=== PATIENT | female | born 1970 | race Caucasian/White ===

== ENCOUNTER 2017-02-26 18:45 | Emergency (ER) | payer MEDICAID ==
[2017-02-26] MEDS ORDERED: MORPHINE SULFATE 5 MG/ML PFS IVP ONE (18:57)
[2017-02-26] MEDS ORDERED: ONDANSETRON HCL IV 4 MG/2 ML VIAL IVP ONE (18:57)
[2017-02-26] MEDS ORDERED: KETOROLAC 30 MG/ML VIAL IVP ONE (18:58)
[2017-02-26 19:04] LABS: BASO % 0.4 % (0-6); EOS % 2.2 % (0-6); HEMATOCRIT 40.8 % (35.0-47.0); HEMOGLOBIN 13.4 gm/dl (11.6-16.0); LYMPH % 37.8 % (16-45); MEAN CELL VOLUME 89.9 fl (81-97); MEAN CORPUSCULAR HEMOGLOBIN 29.5 pg (27-33); MEAN CORPUSCULAR HGB CONC 32.8 g/dl (32-36); MEAN PLATELET VOLUME 9.8 fl (7.4-10.4); MONO % 7.6 % (0-9); PLATELET COUNT 419 K/uL (130-400); RED BLOOD COUNT 4.54 M/uL (3.80-5.40); RED CELL DISTRIBUTION WIDTH 13.6 % (11.5-14.5)
--- NOTE | 2017-02-26 19:04 | Emergency Department Record ---
History of Present Illness - General Chief complaint: Flank Pain Stated complaint: POSS KIDNEY STONE Time Seen by Provider: 02/26/17 18:47 Source: Patient Mode of Arrival: Ambulatory Limitations: No limitations - History of Present Illness Initial comments: 46 yo female presents to ED with a CC of right sided flank pain that began around 15 hours ago. Patient reports that she noticed "pink urine" this morning , took ibuprofen for developing pain symptoms that improved her symptoms before they became worse. Patient denies fevers, chills, or recent illness. Patient denies health problems at her baseline. MD Complaint: Other Onset/Timin -: Hour(s) Radiation: R flank Severity scale (1-10): 7 Quality: Aching, Other Consistency: Constant Improves with: None Worsens with: None Patient : No Associated Symptoms: Nausea/vomiting - Related Data Previous Rx's Medication Instructions Recorded Hydrocodone/Acetaminophen [[place] 1 each PO Q6H PRN #10 tablet 02/26/17 5-325 Tablet] Allergies Allergy/AdvReac Type Severity Reaction Status Date / Time No Known Drug Allergies Allergy Verified 02/26/17 18:51 Travel Screening - Travel/Exposure Within Last 30 Days Have you traveled within the last 30 days?: No Review of Systems Constitutional: Denies: Chills, Fever, Malaise, Night sweats Eyes: Denies: Eye discharge, Eye pain ENT: Denies: Congestion, Ear pain, Epistaxis Respiratory: Denies: Cough, Dyspnea Cardiovascular: Denies: Chest pain, Dyspnea on exertion Endocrine: Denies: Fatigue, Heat or cold intolerance Gastrointestinal: Reports: Abdominal pain, Nausea, Vomiting Genitourinary: Reports: Hematuria. Denies: Incontinence Musculoskeletal: Reports: Back pain (flank pain). Denies: Arthralgia Skin: Denies: Bruising, Change in color Neurological: Denies: Abnormal gait, Confusion, Headache, Seizure Psychiatric: Denies: Anxiety Hematological/Lymphatic: Denies: Anemia, Blood Clots Past Medical History - SOCIAL HISTORY Smoking Status: Never smoker Alcohol Use: None Drug Use: None - RESPIRATORY Hx Respiratory Disorders: No - CARDIOVASCULAR Hx Cardio Disorders: No - NEURO Hx Neuro Disorders: No - GI Hx GI Disorders: No - Hx Genitourinary Disorders: Yes Hx Kidney Stones: Yes - ENDOCRINE Hx Endocrine Disorders: No - MUSCULOSKELETAL Hx Musculoskeletal Disorders: No - PSYCH Hx Psych Problems: No - HEMATOLOGY/ONCOLOGY Hx Hematology/Oncology Disorders: Yes Hx Cancer: Yes Hx Chemotherapy: No Hx Radiation Therapy: No Family Medical History Any Significant Family History?: No Physical Exam - General General Appearance: Alert, Oriented x3, Cooperative Limitations: No limitations - Head Head exam: Atraumatic, Normocephalic, Normal inspection Head exam detail: negative: Abrasion, Contusion, Sutton's sign, General tenderness, Hematoma, Laceration - Eye Eye exam: Normal appearance. negative: Conjunctival injection, Periorbital swelling, Periorbital tenderness, Scleral icterus - ENT Ear exam: negative: Auricular hematoma, Auricular trauma Nasal Exam: negative: Active bleeding, Discharge, Dried blood, Foreign body Mouth exam: negative: Drooling, Laceration, Muffled voice, Tongue elevation - Neck Neck exam: Normal inspection. negative: Meningismus, Tenderness - Respiratory Respiratory exam: Normal lung sounds bilaterally. negative: Rales, Respiratory distress, Rhonchi, Stridor - Cardiovascular Cardiovascular Exam: Regular rate, Normal rhythm, Normal heart sounds - GI/Abdominal GI/Abdominal exam: Soft, Tenderness (mild TTP RUQ, RLQ). negative: Rebound, Rigid - Rectal Rectal exam: Deferred - exam: Deferred - Extremities Extremities exam: Normal inspection. negative: Calf tenderness, Pedal edema, Tenderness - Back Back exam: Reports: CVA tenderness (R). Denies: CVA tenderness (L) - Neurological Neurological exam: Alert, Normal gait, Oriented X3 - Psychiatric Psychiatric exam: Normal affect, Normal mood - Skin Skin exam: Normal color. negative: Abrasion Type of lesion: negative: abrasion Course Vital Signs 02/26/17 18:51 Temperature 98.6 F Pulse Rate [ 96 H Pulse Ox Probe] Respiratory 20 Rate Blood Pressure 158/100 [Left Arm] Pulse Ox 99 - Reevaluation(s) Reevaluation #1: 02/26/17 19:31 Labs reviewed, 16-25 RBCs present with amorphus sediment present. Labs reviewed and are grossly unremarkable for an acute process. Reevaluation #2: 02/26/17 19:42 CT Abdomen and Pelvis: No hydronephrosis or hydro-ureter, post-surgical changes in the pelvis, nothing acute. Patient's UA and clinical findigns are c/w kidney stone, will treat with [place] and instructions to follow-up with Dr. Russo next week. Patient was updated on all results, reports that she is feeling much better and appears stable for discharge at this time. Medical Decision Making - Lab Data Result diagrams: 02/26/17 18:55 02/26/17 18:55 Disposition Disposition: Discharge Clinical Impression: Kidney stone Disposition: Home, Self-Care Condition: (2) Stable Instructions: Flank Pain (ED) Additional Instructions: Return to ED if your symptoms worsen or if you have any concerns. Zaida as directed. Follow-up with Dr Russo next week. Prescriptions: Hydrocodone/Acetaminophen [[place] 5-325 Tablet] 1 each PO Q6H PRN #10 tablet PRN Reason: Pain - Moderate (5-7) Referrals: NATHALIE BARRIOS M.D. [MEDICAL DOCTOR] - Forms: Patient Portal Access Time of Disposition: 19:44 Quality - Quality Measures Quality Measures: N/A - Blood Pressure Screening Does Patient Have Any of the Following: No Blood Pressure Classification: Pre-Hypertensive BP Reading Systolic Measurement: 132 Diastolic Measurement: 66 Screening for High Blood Pressure: < Pre-Hypertensive BP, F/U Documented > [ G8950] Pre-Hypertensive Follow-up Interventions: Referral to alternative/primary care provider.
[2017-02-26 19:14] LABS: ALB/GLOB RATIO 1.5 (1.1-1.8); ALBUMIN 5.1 gm/dL (3.5-5.0); ALKALINE PHOSPHATASE 81 U/L (38-126); ALT/SGPT 43 U/L (9-52); ANION GAP 10.7 (7-16); AST/SGOT 20 U/L (14-36); BILIRUBIN,TOTAL 0.51 mg/dL (0.2-1.3); BLOOD UREA NITROGEN 13 mg/dL (7-17); CARBON DIOXIDE 27.3 mmol/L (22-30); EST GLOMERULAR FILTRATION RATE > 60 ml/min; GLUCOSE,RANDOM 97 mg/dL (70-110); TOTAL PROTEIN 8.5 gm/dL (6.3-8.2)
[2017-02-26 19:15] LABS: URINE APPEARANCE CLEAR; URINE BILIRUBIN NEGATIVE (NEGATIVE); URINE BLOOD LARGE (NEGATIVE); URINE COLOR YELLOW; URINE GLUCOSE (UA) NEGATIVE (NEGATIVE); URINE KETONE NEGATIVE (NEGATIVE); URINE LEUKOCYTE ESTERASE NEGATIVE (NEGATIVE); URINE NITRITE NEGATIVE (NEGATIVE); URINE PROTEIN NEGATIVE (NEGATIVE); URINE UROBILINOGEN 0.2 E.U./dL (0.20 - 1.00)
[2017-02-26 19:26] LABS: URINE AMORPHOUS SEDIMENT 1+; URINE EPITHELIAL CELLS 0 - 2 (FEW); URINE RBC 16 - 25 (NONE SEEN); URINE WBC 0 - 2 (0-2/hpf)
--- NOTE | 2017-02-28 17:01 | CT SCAN REPORT ---
EXAM: CT SCAN ABDOMEN/PELVIS WO CONTRAST HISTORY: RIGHT-SIDED FLANK PAIN AND BACK PAIN FOR HALF A DAY. HYSTERECTOMY IN 2000. TECHNIQUE: Axial CT scan of the abdomen and pelvis performed without oral or IV contrast at the referring physician's request. COMPARISON: None. FINDINGS: No calcified gallstones are seen within the gallbladder. No intrarenal calculi identified on either side. No hydronephrosis or hydroureter is seen on either side. As such, the entire course of both ureters is difficult to follow throughout the retroperitoneum and pelvis. There are numerous surgical clips throughout the retroperitoneum and pelvis that lie in close proximity to the ureters as well. However, no definite ureteral calculus identified on either side and no bladder calculus evident. Evaluation of the bowel and viscera are very limited without oral or IV contrast. Given this limitation, no definite hepatic, splenic, adrenal, pancreatic, or renal mass identified. Uterus not identified consistent with the surgical history. Mild diverticulosis in the sigmoid colon but no diverticulitis evident. Moderate stool diffusely throughout the colon raising the possibility of constipation. Appendix not well seen but no pericecal inflammatory change identified to suggest appendicitis. No free intraperitoneal air or free intraperitoneal fluid identified. Note is also made that the stomach is relatively distended with apparent residual food content. IMPRESSION: 1. POSTOP HYSTERECTOMY WITH NUMEROUS SURGICAL CLIPS IN THE RETROPERITONEUM BILATERALLY AND PELVIS. 2. NO DEFINITE URINARY TRACT CALCULI OR HYDRONEPHROSIS IDENTIFIED. 3. MODERATE AMOUNT OF STOOL DIFFUSELY THROUGHOUT THE COLON SUGGESTING CONSTIPATION. 4. NO APPENDICITIS IDENTIFIED. NO FREE AIR OR FREE FLUID SEEN. 5. STOMACH QUITE DISTENDED WITH RESIDUAL FOOD CONTENT WELL. JOB NUMBER: [id number] [facility]
== END 2017-02-26 20:20 | disposition home or self-care (01) ==
LOC: ER 18:45
DX: N20.0 Calculus of kidney (principal); R11.2 Nausea with vomiting, unspecified; Z87.442 Personal history of urinary calculi
CPT/HCPCS: 99284 ×2; 96374; 96375; 85025; 80053; 81001; 74176; J1885; J2405; J2270

== ENCOUNTER 2017-07-17 09:54 | Emergency (ER) | payer MEDICAID ==
[2017-07-17] MEDS ORDERED: 0.9 % SODIUM CHLORIDE 1,000 ML BAG IV ONE (10:13)
[2017-07-17] MEDS ORDERED: ONDANSETRON HCL IV 4 MG/2 ML VIAL IV ONE (10:13)
--- NOTE | 2017-07-17 10:14 | Emergency Department Record ---
History of Present Illness - General Chief complaint: Flank Pain Stated complaint: ABDOMINAL/BACK PAIN Time Seen by Provider: 07/17/17 10:06 Source: Patient Mode of Arrival: Ambulatory Limitations: No limitations - History of Present Illness Initial comments: 46 yo female presents with a few days of left flank pain. The pain is now radiating around the flank to the front. She was seen in the urgent care and blood without infection was found in the urine. She has some nausea. No fevers. No visible blood in the urine. No rash. No fevers. No changes in the bowel movements. MD Complaint: Other Severity: Moderate Quality: Aching Consistency: Constant Improves with: None Worsens with: None - Related Data Previous Rx's Medication Instructions Recorded Hydrocodone/Acetaminophen [[place] 1 each PO Q6H PRN #10 tablet 02/26/17 5-325 Tablet] Cephalexin [Keflex] 500 mg PO TID #21 cap 07/17/17 Hydrocodone/Acetaminophen [[place] 1 each PO Q8H #15 tablet 07/17/17 5-325 Tablet] Ondansetron HCl [Zofran] 4 mg PO Q8H #12 ml 07/17/17 Allergies Allergy/AdvReac Type Severity Reaction Status Date / Time No Known Drug Allergies Allergy Verified 02/26/17 18:51 Review of Systems Constitutional: Denies: Chills, Fever, Malaise, Weakness Eyes: Denies: Eye discharge ENT: Denies: Congestion, Throat pain Respiratory: Denies: Cough Cardiovascular: Denies: Chest pain, Palpitations, Syncope Endocrine: Denies: Fatigue Gastrointestinal: Reports: As per HPI, Abdominal pain. Denies: Constipation, Diarrhea, Hematemesis, Hematochezia, Melena, Nausea, Vomiting Genitourinary: Reports: Frequency. Denies: Dysuria, Hematuria (microscopic, not gross hematuria), Incontinence, Urgency Musculoskeletal: Reports: As per HPI, Back pain Skin: Denies: Bruising, Change in color, Rash Neurological: Denies: Headache, Numbness, Paresthesias, Weakness Psychiatric: Denies: Anxiety Hematological/Lymphatic: Denies: Blood Clots, Easy bleeding, Easy bruising, Swollen glands Past Medical History - SOCIAL HISTORY Smoking Status: Never smoker Drug Use: None - RESPIRATORY Hx Respiratory Disorders: No - CARDIOVASCULAR Hx Cardio Disorders: No - NEURO Hx Neuro Disorders: No - GI Hx GI Disorders: No - Hx Genitourinary Disorders: Yes Hx Kidney Stones: Yes - ENDOCRINE Hx Endocrine Disorders: No - MUSCULOSKELETAL Hx Musculoskeletal Disorders: No - PSYCH Hx Psych Problems: No - HEMATOLOGY/ONCOLOGY Hx Hematology/Oncology Disorders: Yes Hx Cancer: Yes Hx Chemotherapy: No Hx Radiation Therapy: No Physical Exam - General General Appearance: Alert, Oriented x3, Cooperative, No acute distress Limitations: No limitations - Head Head exam: Normal inspection - Eye Eye exam: Normal appearance. negative: Conjunctival injection, Scleral icterus - ENT ENT exam: Normal exam, Mucous membranes moist Ear exam: Normal external inspection Nasal Exam: Normal inspection Mouth exam: Normal external inspection - Neck Neck exam: Normal inspection, Full ROM. negative: Tenderness - Respiratory Respiratory exam: Normal lung sounds bilaterally. negative: Respiratory distress - Cardiovascular Cardiovascular Exam: Regular rate, Normal rhythm, Normal heart sounds - GI/Abdominal GI/Abdominal exam: Soft, Normal bowel sounds. negative: Tenderness - Rectal Rectal exam: Deferred - exam: Deferred - Extremities Extremities exam: Normal inspection - Back Back exam: Reports: Normal inspection, CVA tenderness (L), Full ROM, Tenderness. Denies: Muscle spasm, Paraspinal tenderness, Rash noted, Vertebral tenderness - Neurological Neurological exam: Alert, Normal gait, Oriented X3 - Psychiatric Psychiatric exam: Normal affect, Normal mood. negative: Agitated, Anxious - Skin Skin exam: Dry, Intact, Normal color, Warm Course - Reevaluation(s) Reevaluation #1: EMR reviewed from 02/[address] 07/17/17 10:10 07/17/17 10:54 No acute changes on the CBC The CMP glucose was 160 UA with blood, small LE, N-, 3-5 WBC few bacteria 07/17/17 12:[address] was reviewed No stone or ureteral findings. She does have a 1.6 cm soft tissue mass near the distal ureter on the left but no obstruction. She will be referred to her doctor for outpatient CT urogram with contrast. She will be treated symptomatically for pain and possible UTI. UA will be sent for culture. This was confirmed with the lab Medical Decision Making - Lab Data Result diagrams: 07/17/17 10:12 07/17/17 10:12 Disposition Disposition: Discharge Clinical Impression: Flank pain UTI (urinary tract infection) Qualifiers: Urinary tract infection type: site unspecified Hematuria presence: without hematuria Qualified Code(s): N39.0 - Urinary tract infection, site not specified Condition: (1) Good Instructions: Flank Pain (ED), Urinary Tract Infection in Women (ED) Additional Instructions: Call Dr Brody for close follow up to review the CT scan The radiologist recommends outpatient CT Urogram for a 1.6cm soft tissue mass near the left ureter/bladder Return to the ER if fever, worse, pain, any new concerns Prescriptions: Cephalexin [Keflex] 500 mg PO TID #21 cap Hydrocodone/Acetaminophen [[place] 5-325 Tablet] 1 each PO Q8H #15 tablet Ondansetron HCl [Zofran] 4 mg PO Q8H #12 ml Forms: Patient Portal Access Time of Disposition: 12:16 Quality - Quality Measures Quality Measures: N/A - Blood Pressure Screening Does Patient Have Any of the Following: No Blood Pressure Classification: Hypertensive Reading Systolic Measurement: 151 Diastolic Measurement: 107 Screening for High Blood Pressure: < Pre-Hypertensive BP, F/U Documented > [ G8950] Pre-Hypertensive Follow-up Interventions: Referral to alternative/primary care provider.
[2017-07-17] MEDS ORDERED: MORPHINE SULFATE 5 MG/ML PFS IVP ONE (10:15)
[2017-07-17 10:24] LABS: BASO % 0.9 % (0-6); EOS % 1.4 % (0-6); GRAN % 58.9 % (47-80); HEMATOCRIT 45.7 % (35.0-47.0); HEMOGLOBIN 14.8 gm/dl (11.6-16.0); LYMPH % 34.4 % (16-45); MEAN CELL VOLUME 89.8 fl (81-97); MEAN CORPUSCULAR HEMOGLOBIN 29.1 pg (27-33); MEAN CORPUSCULAR HGB CONC 32.4 g/dl (32-36); MEAN PLATELET VOLUME 9.6 fl (7.4-10.4); MONO % 4.4 % (0-9); PLATELET COUNT 416 K/uL (130-400); RED BLOOD COUNT 5.09 M/uL (3.80-5.40); RED CELL DISTRIBUTION WIDTH 14.1 % (11.5-14.5); URINE APPEARANCE CLEAR; URINE BILIRUBIN NEGATIVE (NEGATIVE); URINE BLOOD LARGE (NEGATIVE); URINE COLOR YELLOW; URINE GLUCOSE (UA) NEGATIVE (NEGATIVE); URINE KETONE NEGATIVE (NEGATIVE); URINE LEUKOCYTE ESTERASE SMALL (NEGATIVE); URINE NITRITE NEGATIVE (NEGATIVE); URINE PROTEIN NEGATIVE (NEGATIVE); URINE UROBILINOGEN 0.2 E.U./dL (0.20 - 1.00); WHITE BLOOD COUNT W/O DIFF 6.7 K/uL (4.2-12.2)
[2017-07-17 10:34] LABS: URINE BACTERIA FEW
[2017-07-17 10:36] LABS: BLOOD UREA NITROGEN 10 mg/dL (6-20)
[2017-07-17 10:37] LABS: CREATININE 0.8 mg/dL (0.5-0.9); EST GLOMERULAR FILTRATION RATE > 60 mL/min; TOTAL PROTEIN 8.3 g/dL (6.6-8.7)
[2017-07-17 10:39] LABS: GLUCOSE,RANDOM 160 mg/dL (74-109)
[2017-07-17 10:42] LABS: ALB/GLOB RATIO 1.4 (1.1-1.8); ALBUMIN 4.9 g/dL (4.0-5.0); ALKALINE PHOSPHATASE 83 U/L (35-104); ALT/SGPT 22 U/L (<33); AST/SGOT 20 U/L (10.0-35.0)
[2017-07-17] MEDS ORDERED: KETOROLAC 30 MG/ML VIAL IVP ONE (11:18)
--- NOTE | 2017-07-18 08:45 | CT SCAN REPORT ---
EXAM: EMERGENCY CT SCAN OF THE ABDOMEN AND PELVIS WITHOUT CONTRAST HISTORY: LEFT FLANK PAIN WITH BLOOD IN THE URINE, NAUSEA. HYSTERECTOMY. TECHNIQUE: Axial CT scan of the abdomen and pelvis was performed without oral or IV contrast. Comparison: CT of the abdomen and pelvis 02/26/17. FINDINGS: No intrarenal calculi identified on either side. No hydronephrosis or hydroureter is seen. As such it is somewhat difficult to follow the entire course of both ureters in their nondilated state throughout the retroperitoneum and pelvis. No ureteral calculus seen on the right. There is some asymmetric soft tissue prominence in the low left side of the pelvis posterior to the bladder near the region of the distal ureter somewhat obscuring the distal ureter, but there is no associated obstruction of the left ureter. No actual ureteral calculus seen and no bladder calculus evident. The significance of the asymmetric approximately 1.6 cm soft tissue density just posterior to the left side of the urinary bladder is uncertain. This soft tissue density was less apparent on the prior study when it only measured about 9 mm in diameter. Evaluation of the bowel and viscera is very limited without oral or IV contrast. Given this limitation, no definite hepatic, splenic, adrenal, pancreatic, or renal mass identified. Retroperitoneal and pelvic surgical clips again noted. No appendicitis identified. The lung bases are clear. No free intraperitoneal air or free intraperitoneal fluid evident. Very small periumbilical anterior abdominal wall hernia containing adipose tissue, but no bowel. IMPRESSION: 1. POSTOP HYSTERECTOMY WITH NUMEROUS SURGICAL CLIPS AGAIN SEEN IN THE RETROPERITONEUM AND PELVIS. 2. NO URINARY TRACT CALCULI OR HYDRONEPHROSIS IDENTIFIED ON EITHER SIDE. 3. THERE IS A SMALL BUT ASYMMETRIC APPEARING SOFT TISSUE DENSITY JUST POSTERIOR TO THE URINARY BLADDER ON THE LEFT TODAY MEASURING ABOUT 1.6 CM IN DIAMETER AND ON THE 02/26/17 EXAM ABOUT 9 MM IN DIAMETER. THIS IS OF UNCERTAIN SIGNIFICANCE AND IS IN THE REGION OF THE DISTAL LEFT URETER. FOLLOW-UP NONEMERGENT CT UROGRAPHY WOULD PROBABLY BE USEFUL TO BETTER ESTABLISH THE RELATIONSHIP OF THE URETER TO THIS SOFT TISSUE DENSITY. 4. VERY SMALL PERIUMBILICAL ANTERIOR ABDOMINAL WALL HERNIA CONTAINING ADIPOSE TISSUE, BUT NO BOWEL. JOB NUMBER: [id number] [facility]
== END 2017-07-17 12:33 | disposition home or self-care (01) ==
LOC: ER 09:54
DX: N39.0 Urinary tract infection, site not specified (principal); R11.0 Nausea; R10.9 Unspecified abdominal pain; R31.29 Other microscopic hematuria
CPT/HCPCS: 99284 ×2; 96374; 96375; 85025; 80053; 81001; 74176; J1885; J2405; J2270; J7030

== ENCOUNTER 2017-07-29 14:55 | Emergency (ER) | payer MEDICAID ==
[2017-07-29] MEDS ORDERED: ONDANSETRON HCL IV 4 MG/2 ML VIAL IV ONE (15:26)
[2017-07-29] MEDS ORDERED: 0.9 % SODIUM CHLORIDE 1,000 ML BAG IV ONE (15:26)
[2017-07-29] MEDS ORDERED: HYDROMORPHONE HCL 1 MG/ML SYRINGE IVP ONE (15:26)
--- NOTE | 2017-07-29 15:36 | Emergency Department Record ---
History of Present Illness - General Chief Complaint: Abdominal Pain Stated Complaint: ABD PAIN Time Seen by Provider: 07/29/17 15:18 Source: Patient Mode of Arrival: Ambulatory Limitations: No limitations - History of Present Illness Initial Comments: The patient is here due to a 2 week hx of LLQ AP intermittently that did worsen today. The pain is sharp and stabbing and she denies any nausea, vomiting, fever , or dysuria. She was here at [facility] 12 days ago and had a neg CT for [place] but it did demonstrate a small soft tissue mass by her bladder. The patient is now convinced that is causing her pain. She is scheduled for a CT urogram at [facility]. MD Complaint: Abdominal pain Onset/Timin -: Hour(s) Location: Suprapubic Radiation: None Migration to: No migration Severity: Severe Quality: Sharp Consistency: Constant Improves With: Other Worsens With: Other Context: Other Associated Symptoms: Denies other symptoms - Related Data Patient : No Hx Age of Menopause: 29 Allergies Allergy/AdvReac Type Severity Reaction Status Date / Time codeine AdvReac ITCHING Verified 07/29/17 15:19 Travel Screening - Travel/Exposure Within Last 30 Days Have you traveled within the last 30 days?: No - Travel/Exposure Within Last Year Have you traveled outside the [place] in the last year?: No - Additonal Travel Details Have you been exposed to anyone with a communicable illness?: No - Travel Symptoms Symptom Screening: None Review of Systems Constitutional: Denies: Chills, Fever Eyes: Denies: Eye discharge ENT: Denies: Congestion Respiratory: Denies: Cough, Dyspnea, Hemoptysis Past Medical History - SOCIAL HISTORY Smoking Status: Never smoker - RESPIRATORY Hx Respiratory Disorders: No - CARDIOVASCULAR Hx Cardio Disorders: No - NEURO Hx Neuro Disorders: No - GI Hx GI Disorders: No - Hx Genitourinary Disorders: Yes Hx Kidney Stones: Yes - ENDOCRINE Hx Endocrine Disorders: No - MUSCULOSKELETAL Hx Musculoskeletal Disorders: No - PSYCH Hx Psych Problems: No - HEMATOLOGY/ONCOLOGY Hx Hematology/Oncology Disorders: Yes Hx Cancer: Yes Hx Chemotherapy: No Hx Radiation Therapy: No Family Medical History Any Significant Family History?: No Physical Exam - General General Appearance: Alert, Oriented x3, Cooperative, No acute distress - Head Head exam: Atraumatic, Normocephalic, Normal inspection - Eye Eye exam: Normal appearance, PERRL - Neck Neck exam: Normal inspection, Full ROM. negative: Tenderness - Respiratory Respiratory exam: Normal lung sounds bilaterally. negative: Respiratory distress - Cardiovascular Cardiovascular Exam: Regular rate, Normal rhythm, Normal heart sounds - GI/Abdominal GI/Abdominal exam: Soft, Normal bowel sounds, Tenderness (There is LLQ tenderness to palpation.). negative: Pulsatile mass, Rebound, Rigid - Extremities Extremities exam: Normal inspection, Full ROM, Normal capillary refill. negative: Tenderness - Neurological Neurological exam: Alert. negative: Motor sensory deficit Course Vital Signs 07/29/17 15:03 Temperature 98.7 F Pulse Rate [ 100 H Pulse Ox Probe] Respiratory 20 Rate Blood Pressure 161/105 [Left Arm] Pulse Ox 96 - Reevaluation(s) Reevaluation #1: The patient is doing a lot better at this time. Her pain is much improved. 07/29/17 16:09 Reevaluation #2: The patient is doing much better at this time. She denies any pain or discomfort. I did explain to her that the CT does not demonstrate any abnormality. And because of that I cannot tell her with any degree of certainty what is causing her pain. She is scheduled to see a Urologist soon due to the persistent hematuria. She is to take her home pain medicines and we will add some [place] for home. She is to see her PCP as planned and always may return to the ER for any worsening symptoms. 07/29/17 18:21 Medical Decision Making - Data Complexity MDM Data: Labs Ordered and/or Reviewed, X-Ray Ordered and/or Reviewed - Lab Data Result diagrams: 07/29/17 15:35 07/29/17 15:35 - Radiology Data Radiology results: Report reviewed (Abd/pelvis CT: Neg for any acute process. No infection, abscess, free fluid or mass.) Disposition Disposition: Discharge Clinical Impression: Abdominal pain Qualifiers: Abdominal location: left lower quadrant Qualified Code(s): R10.32 - Left lower quadrant pain Disposition: Home, Self-Care Condition: (1) Good Instructions: Abdominal Pain (ED) Additional Instructions: Please continue your home pain medicine and keep your scheduled appointments. Please return to the ER for any worsening symptoms. Forms: Patient Portal Access Time of Disposition: 18:24 Quality - Quality Measures Quality Measures: N/A - Blood Pressure Screening View Details: Yes Does Patient Have Any of the Following: No Blood Pressure Classification: Pre-Hypertensive BP Reading Systolic Measurement: 148 Diastolic Measurement: 85 Screening for High Blood Pressure: < Pre-Hypertensive BP, F/U Documented > [ G8950] Pre-Hypertensive Follow-up Interventions: Referral to alternative/primary care provider.
[2017-07-29 15:47] LABS: BASO % 0.4 % (0-6); EOS % 1.4 % (0-6); GRAN % 72.2 % (47-80); HEMATOCRIT 43.7 % (35.0-47.0); HEMOGLOBIN 14.4 gm/dl (11.6-16.0); LYMPH % 20.1 % (16-45); MEAN CELL VOLUME 89.4 fl (81-97); MEAN CORPUSCULAR HEMOGLOBIN 29.4 pg (27-33); MEAN PLATELET VOLUME 9.5 fl (7.4-10.4); MONO % 5.9 % (0-9); PLATELET COUNT 433 K/uL (130-400); RED BLOOD COUNT 4.89 M/uL (3.80-5.40); RED CELL DISTRIBUTION WIDTH 13.8 % (11.5-14.5); WHITE BLOOD COUNT W/O DIFF 8.5 K/uL (4.2-12.2)
[2017-07-29 15:50] LABS: URINE APPEARANCE CLOUDY; URINE BILIRUBIN NEGATIVE (NEGATIVE); URINE BLOOD LARGE (NEGATIVE); URINE COLOR YELLOW; URINE GLUCOSE (UA) NEGATIVE (NEGATIVE); URINE KETONE TRACE (NEGATIVE); URINE LEUKOCYTE ESTERASE SMALL (NEGATIVE); URINE NITRITE NEGATIVE (NEGATIVE); URINE PROTEIN NEGATIVE (NEGATIVE); URINE UROBILINOGEN 0.2 E.U./dL (0.20 - 1.00)
[2017-07-29 15:58] LABS: URINE BACTERIA NONE SEEN; URINE EPITHELIAL CELLS 0 - 2 (FEW); URINE RBC 16 - 25 (NONE SEEN)
[2017-07-29 15:59] LABS: BLOOD UREA NITROGEN 11 mg/dL (6-20); CREATININE 0.7 mg/dL (0.5-0.9); EST GLOMERULAR FILTRATION RATE > 60 mL/min
[2017-07-29 16:00] LABS: TOTAL PROTEIN 8.1 g/dL (6.6-8.7)
[2017-07-29 16:01] LABS: GLUCOSE,RANDOM 96 mg/dL (74-109)
[2017-07-29 16:04] LABS: ALBUMIN 4.9 g/dL (4.0-5.0); ALKALINE PHOSPHATASE 76 U/L (35-104); ALT/SGPT 22 U/L (<33); AST/SGOT 17 U/L (10.0-35.0); LIPASE 23 U/L (13-60)
[2017-07-29 16:10] LABS: BILIRUBIN,DIRECT < 0.2 mg/dL (0-0.3)
[2017-07-29] MEDS ORDERED: KETOROLAC 30 MG/ML VIAL IVP ONE (16:14)
[2017-07-29] MEDS ORDERED: HYDROCODONE/APAP 5/325MG TABLET PO ONE (18:19)
--- NOTE | 2017-07-30 23:21 | CT SCAN REPORT ---
EXAM: CT SCAN ABDOMEN/PELVIS W CONTRAST HISTORY: LEFT LOWER ABDOMINAL PAIN. HISTORY OF SOFT TISSUE MASS ON BLADDER DIAGNOSED TWO WEEKS AGO. TECHNIQUE: Following oral and intravenous contrast administration, helical CT examination of the abdomen and pelvis is performed including delayed images through the kidneys and delayed images through the urinary bladder with 100 mL of Omnipaque-300 utilized. COMPARISON: CT abdomen and pelvis without contrast dated 07/17/2017. FINDINGS: Minimal dependent atelectasis in each lung base. Minimal linear scarring vs. atelectasis in the anterior lung bases. No pleural or pericardial effusion. The heart is nonenlarged. There are three subcentimeter, too small to characterize hypodense lesions within the liver. One in the left liver lobe as seen on image #17 of 124, one in the caudate lobe as seen on image #19, and one in the mid right liver lobe laterally as seen on image #20. These are nonspecific but, in the absence of known malignant primary tumor and absence of known liver disease, are likely cysts or hemangiomata. The liver is otherwise normal in appearance. The spleen, pancreas, adrenal glands, and kidneys are normal in appearance. The gallbladder is unremarkable and no biliary ductal dilatation is seen. No intraabdominal nor retroperitoneal lymphadenopathy is identified. The uterus is surgically absent. The ovaries are presumed absent. There are multiple surgical clips along the pelvic sidewalls and extending superiorly in the retroperitoneum to the distal abdominal aortic level. Evaluation of the urinary bladder is somewhat limited by incomplete distention. The previously demonstrated somewhat nodular soft tissue density projecting adjacent to the left posterior margin of the urinary bladder appears slightly less pronounced. This area currently measures 1.4 x 0.6 cm in the axial plane. This may represent scarring involving the left margin of the vaginal cuff. The ureter is noted to course anterior to this structure and is normal in appearance. No new pelvic mass, lymphadenopathy, or free pelvic fluid. No gross bowel dilatation nor bowel wall thickening. No lytic or blastic bone lesion. IMPRESSION: 1. POST HYSTERECTOMY CHANGES REDEMONSTRATED WITH MULTIPLE SURGICAL CLIPS SCATTERED WITHIN THE PELVIS. 2. THE SMALL NODULAR SOFT TISSUE STRUCTURE PREVIOUSLY DEMONSTRATED ADJACENT TO THE LEFT POSTERIOR MARGIN OF THE URINARY BLADDER LIKELY RELATES TO SCARRING OF THE LEFT MARGIN OF THE VAGINAL CUFF. THE URETER COURSES ANTERIOR TO THIS AND APPEARS UNREMARKABLE. 3. SEVERAL TOO SMALL TO CHARACTERIZE HYPODENSE LESIONS IN THE LIVER, DISCUSSED ABOVE. JOB NUMBER: [id number] [facility]
== END 2017-07-29 18:29 | disposition home or self-care (01) ==
LOC: ER 14:55
DX: R10.32 Left lower quadrant pain (principal); R31.29 Other microscopic hematuria
CPT/HCPCS: 99284 ×2; 96374; 96375; 83690; 85025; 80076; 80048; 81001; 74177; Q9967; J1885; J2405; J1170; J7030